=== PATIENT | male | born 1965 | race Caucasian/White ===

== ENCOUNTER 2016-06-25 20:13 | Day surgery (SDC) | payer BC ==
[2016-06-25] MEDS ORDERED: Bupivacaine 0.5% 30 ML SDV ONE (20:33)
[2016-06-25] MEDS ORDERED: Rocuronium 50 MG/5 ML Vial ONE (20:38)
[2016-06-25] MEDS ORDERED: Propofol 200 MG/20 ML SDV ONE (20:38)
[2016-06-25] MEDS ORDERED: Midazolam 1 MG/ML 2 ML SDV ONE (20:38)
[2016-06-25] MEDS ORDERED: fentaNYL 250 MCG/5 ML SDV ONE (20:38)
[2016-06-25] MEDS ORDERED: Ondansetron 4 MG/2 ML SDV ONE (20:38)
[2016-06-25] MEDS ORDERED: Lactated Ringers 1,000 ML ONE ×2 (20:40→21:58)
[2016-06-25] MEDS ORDERED: Ertapenem 1 GM AdvVial ONE (20:40)
[2016-06-25] MEDS ORDERED: Sodium Chloride 0.9% 100 ML ONE (20:41)
[2016-06-25] MEDS ORDERED: Neostigmine Methylsulfate 1 MG/ML 5 ML Syringe ONE (21:46)
--- NOTE | 2016-06-25 21:46 | PCM.OPNOTE ---
- General Post-Op/Procedure Note Date of Surgery/Procedure: 06/25/16 Operative Procedure(s): lap appy Pre Op Diagnosis: acute appendicitis Post-Op Diagnosis: Same Anesthesia Technique: General ET tube Primary Surgeon: Aris Sun EBL in mLs: 10 Complications: None Condition: Good
[2016-06-25] MEDS ORDERED: HYDROmorphone 0.5 MG/0.5 ML Syringe IVPUSH PRN (21:57)
[2016-06-25] MEDS ORDERED: fentaNYL 250 MCG/5 ML SDV IVPUSH PRN (21:57)
[2016-06-25] MEDS ORDERED: Ketorolac 30 MG/ML SDV IVPUSH PRN (21:57)
--- NOTE | 2016-06-25 21:59 | PCM.POSTAN ---
POST ANESTHESIA ASSESSMENT - MENTAL STATUS Mental Status: somnolent - VITAL SIGNS Pulse Rate: 67 SaO2: 100 Resp Rate: 18 Blood Pressure: 115/74 Temperature: 36.7 C - RESPIRATORY Respiratory Status: respiratory rate WNL, airway patent, O2 saturation stable - CARDIOVASCULAR CV Status: pulse rate WNL, blood pressure stable - GASTROINTESTINAL GI Status: no symptoms - PAIN Pain Score: 0 - POST OP HYDRATION Hydration Status: adequate & stable - OBSERVATIONS Free Text/Narrative:: no anesthesia complications noted
[2016-06-25] MEDS ORDERED: Meperidine PF 50 MG/ML Syringe ONE (22:05)
[2016-06-25] MEDS ORDERED: Meperidine PF 50 MG/ML Syringe IVPUSH ONE (22:10)
[2016-06-25] MEDS ORDERED: Acetaminophen/HYDROcodone 325-5 MG Tab PO ONE (23:12)
[2016-06-25 23:48] VITALS: BP 132/79
--- NOTE | 2016-06-26 02:03 | HP ---
DATE OF ADMISSION: 06/25/2016 HISTORY OF PRESENT ILLNESS: This 50-year-old comes in the emergency room with pain in the right lower quadrant. His pain began yesterday with kind of periumbilical pain, crampy at about 4 o'clock yesterday and then this morning at 0300 hours, he woke up with pain in the right lower quadrant and it has persisted until that he came home from work at 3, vomited, and came to see the outpatient walk-in clinic where they noted the pain in the right lower quadrant. Elevated white count of 13,000. Normal urinalysis and a CT scan showing acute appendicitis. He is referred here for care. PAST MEDICAL HISTORY: Good health. CURRENT MEDICATIONS: None. HABITS: No smoking. No drinking. ALLERGIES: No known allergies. REVIEW OF SYSTEMS: No chest pain, shortness of breath, cough, hoarseness, wheezing, fainting, weakness, numbness, or convulsions. FAMILY HISTORY: Negative. PHYSICAL EXAMINATION: GENERAL: Examination reveals alert, cooperative male. EYES, EARS, NOSE, AND THROAT: Unremarkable. NECK: Supple. LUNGS: Clear. HEART: Tones are regular rate. ABDOMEN: Tenderness, pinpoint over McBurney's point. EXTREMITIES: Upper and lower extremities, no angulation deformities. NEUROLOGIC: Normal alert. PSYCHIATRIC: Normal affect. ASSESSMENT: Acute appendicitis. PLAN: Laparoscopic appendectomy. Discussed the procedure, risks, complications. He understands and consents. ANAND /[id number]
--- NOTE | 2016-06-26 08:18 | OR ---
DATE OF OPERATION: 06/25/2016 SURGEON: Aris Sun MD PREOPERATIVE DIAGNOSIS: Acute appendicitis. POSTOPERATIVE DIAGNOSIS: Acute appendicitis. OPERATION PERFORMED: Laparoscopic appendectomy done under general anesthetic. ESTIMATED BLOOD LOSS: 10 mL. FINDINGS: Serous appendicitis localized to the appendix, surrounding peritoneum was free of any inflammation. DESCRIPTION OF PROCEDURE: The patient taken to the operating room, placed in a supine position, connected to monitoring equipment and given a general anesthetic and intubated. SCDs were placed. Antibiotics were given and the abdomen was clipped and prepped with DuraPrep, draped off in a sterile fashion. 0.5% Marcaine infiltrated just below the umbilicus. Incision was made and carried down by sharp dissection of the fascia. The fascia was incised abdominal cavity entered and Dorothy trocar placed and secured with stay sutures. A 5 mm 30-degree camera was inserted and abdominal cavity scanned showing acute appendicitis as described above. A 5-mm trocar placed in right upper quadrant, 1 in the right lower quadrant. The appendix was mobilized and a window was placed in the mesoappendix at the base of the cecum. Endo-ligator was then used to separate the appendix from the cecum and 2 firings of the Ethicon Endo-ligator the mesoappendix from the appendix. The appendix was placed in the bag and removed from the abdominal cavity. Pneumoperitoneum was then reestablished. Camera was inserted. The area was irrigated and excellent hemostasis noted. A good secure appendicular stump was noted. This completed the intraabdominal portion of the procedure. Pneumoperitoneum ports were removed and the fascia in the subumbilical port was closed with running 0 Vicryl suture and the skin of each port closed with subdermal 4-0 Dexon suture. Steri-Strips, sterile dressing placed. The patient tolerated the procedure and sent to recovery room in a stable condition. ANESTHESIA: MMODAL /[id number]
[2016-06-26] MEDS ORDERED: Ertapenem 1 GM in Sodium Chloride 0.9% 100 ML IV SCH (09:00)
== END 2016-06-25 23:45 | disposition home or self-care (01) ==
LOC: JD.ED 20:13 → JD.SDS 20:38
PROVIDERS: ATTEND Surgery
PROC: 0DTJ4ZZ Resection of Appendix, Percutaneous Endoscopic Approach (ICD-10-PCS; principal; 2016-06-25)
DX: K35.80 Unspecified acute appendicitis (principal)
CPT/HCPCS: 44970; 88304; 96374; 99284; A9270; J1170; J1335; J1885; J2175; J2250; J2405; J2710; J3010; J7030; J7120; 00840; 99283; 99285-25; J2704